=== PATIENT | female | born 1955 | race Caucasian/White ===

== ENCOUNTER 2017-11-25 07:49 | Outpatient (RCR) | payer BC ==
[2017-03-05 11:55] VITALS: Ht 167.6 cm; Wt 95.6 kg
[2017-10-12 08:43] VITALS: BP 114/69
[2017-10-12 08:50] LABS: PLATELET COUNT, AUTOMATED 287 K/uL (150-450)
[~2017-11-25] VITALS: Ht 167.6 cm; Wt 95.6 kg
[~2017-11-25 07:49] MED LIST: ALBI30PE PO; ALLERGY INJECTIONS SC; ASPI-1441 PO; ASPI-1471 PO; ASPI-715 PO; ATOR40TA24 PO; ATOR40TA69 PO; CA C1TAB6 PO; CALC-762 PO; CALCIUM; CANA1TAB2 PO; CEFU250T11 PO; CEFU500T50 PO; CEP500 PO; CETI10CA8 PO; CHOL40003 PO; CHOL400C10 PO; CIPR-214 PO; DAP500I IV; DOXY-179 PO; EFFEXOR PO; ERG400 FT; EXE25PT PO; EZET1TAB55 PO; FOL1 PO; GLY5 PO; IBUP-1618 PO; IBUP600T22 PO; INSU100C14 SQ; INSU100V28 SQ; LETR2.5T4 PO; LEV500 PO; LEVI SQ; LEVI SUBQ; LIRA0.6P3 SQ; LOR5 PO; MET500 PO; METF-420 PO; MON10 PO; MONT10TA PO; MONT10TA22 PO; MULT-898 PO; MULT1TAB64 PO; NAPR-1043 PO; NOVOLOG SUBQ; OMEG-11 PO; ONDA4TAB PO; OXYC-865 PO; PROM-110 PO; RIS35 PO; SITA100T9 PO; SITA25TA5 PO; TRILI135PT PO; VAL80 PO; VENL150C3 PO; VENL150C61 PO; VENL37.53 PO; VITAMIN D
[2017-11-25 08:02] VITALS: BP 142/81
[2017-11-25] MEDS ORDERED: EMPA1TAB7 (08:05)
--- NOTE | 2017-11-25 09:16 | EL-TARABILY ONCOLOGY NOTE ---
EVENT DATE: November 25, 2017 DIAGNOSES 1. 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 2. Diabetes mellitus on insulin and metformin. 3. Seasonal and environmental allergies. 4. Hyperlipidemia. CHIEF COMPLAINT The patient is here today for followup of her breast cancer. ONCOLOGY HISTORY The patient is a 60-year-old female, postmenopausal, who was diagnosed with stage 2B (T2, N1, M0, ER/WY positive, HER-2/shelly negative) well differentiated invasive ductal carcinoma of the left breast diagnosed in January 2008 after a left modified radical mastectomy and right simple prophylactic mastectomy with bilateral tissue expanders and acellular dermal graft placement. In January of 2009 , the patient had a left breast tissue meal packer placement which was removed March 2009 because of infected left tissue meal packer. August 2008, patient had left breast wound dehiscence with extrusion of the left breast implant. She received adjuvant chemotherapy with dose dense AC for 4 cycles between March 2008 through April 2008 followed by 4 courses of dose dense docetaxel between May 2008 through June 2008. She started Exemestane (Aromasin) in July 2008 which was switched to Letrozole because of intolerance with severe hot flashes and the patient was maintained on Letrozole since then. HISTORY OF PRESENT ILLNESS The patient is here today for followup of her left breast cancer. She is doing fine currently. She is complaining of some tingling and numbness in the right hand from carpal tunnel, but other than that she is totally asymptomatic. PAST MEDICAL HISTORY 1. Left breast cancer. 2. History of C. diff colitis, September of 2008. 3. Type 2 diabetes on insulin. 4. Hyperlipidemia. 5. Seasonal and environmental allergies. 6. Intermittent asthma. PAST SURGICAL HISTORY 1. Left modified radical mastectomy and right simple prophylactic mastectomy with bilateral tissue expanders and a xeroderma graft placement in February 2008. 2. August 2008, patient had left breast wound dehiscence with extrusion of the left breast implant. 3. January 2009 patient had left tissue meal packer placement. 4. March 2009, removal of infected left breast tissue meal packer. 5. Tonsillectomy. 6. Two D and C for miscarriages. 7. LASIK surgery of the eyes. SOCIAL HISTORY The patient is with 2 daughters. 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 Denies any abuse of tobacco, alcohol, or drugs. She drinks a glass of wine every now and then. FAMILY HISTORY Maternal grandfather had leukemia. The paternal grandfather had lung cancer. CURRENT MEDICATIONS 1. Levemir 50 units b.i.d. 2. NovoLog 10 units with lunch, 22 units b.i.d. 3. Tanzeum 30 mg once per week. 4. Metformin 1000 mg b.i.d. 5. Effexor XR 187 mg daily. 6. Letrozole 2.5 mg daily. 7. Diovan 80 mg daily. 8. Singulair 10 mg daily[address] 9. Tril[address] 135 mg once daily. 10. Zyrtec 10 mg p.m. 11. Lipitor 40 mg daily. 12. Baby aspirin 81 mg daily. 13. Multivitamin. 14. Calcium and vitamin D. 15. Vitamin D. ALLERGIES 1. PENICILLIN which caused hives. 2. SULFA which caused hives. 3. CLINDAMYCIN which caused hives. REVIEW OF SYSTEMS CONSTITUTIONAL: No appetite or weight change. No fever, chills or sweating. No recent infection. HEENT: Ears: No tinnitus or hearing problem. Nose: No nasal discharge or epistaxis. Throat: No sore throat or mouth ulcers. Eyes: No diplopia or visual changes. RESPIRATORY: No shortness of breath. No cough, expectoration or hemoptysis. CARDIOVASCULAR: No chest pain, orthopnea, or paroxysmal nocturnal dyspnea (PND) . No edema. No palpitations. GASTROINTESTINAL: No nausea or vomiting. No diarrhea or constipation. No change in bowel movements. No heartburn or swallowing difficulties. No abdominal pain. No jaundice. No hematemesis, melena or rectal bleeding. GENITOURINARY: No hematuria or dysuria. MUSCULOSKELETAL: No pain in the muscles, joints or bones. NEUROLOGICAL: Patient has some tingling and numbness in the right hand because of carpal tunnel syndrome. HEMATOLOGIC/LYMPHATIC: No bleeding or easy bruising. No weakness or fatigued. No enlarged lymph nodes. SKIN: No skin rash or lumps. PSYCHIATRIC: No anxiety or depression. PHYSICAL EXAMINATION GENERAL: Looks stable. Well-developed, well-nourished, and in no acute distress. VITAL SIGNS: Blood pressure 142/81, pulse 107 per minute, respirations 16 per minute, temperature 99.2, pulse oximetry 89% on room air. HEENT: Head: Atraumatic. No sinus tenderness to palpation. Eyes: No icterus or conjunctivitis. Mouth and throat: No oral thrush or mucositis. NECK: Supple. No cervical or supraclavicular lymphadenopathy. LUNGS: Clear to auscultation and percussion bilaterally. HEART: Regular rate and rhythm. No gallops, murmurs, clicks or rubs. ABDOMEN: Soft and lax. No tenderness. No hepatosplenomegaly. No masses. EXTREMITIES: No cyanosis, clubbing or edema. LYMPHATICS: No peripheral lymphadenopathy. NEUROLOGICAL: Conscious, alert and oriented times three. No focal motor or sensory deficits. PSYCHIATRIC: Mood and affect appear normal. SKIN: No skin rash, bruise or purpuric eruption. DIAGNOSTIC/LABORATORY STUDIES CBC shows white count 9700, hemoglobin 16.1, hematocrit 48, platelets 287,000. Chem panel totally normally except BUN 24. Blood sugar 278, alkaline phosphatase 156. Bone density scan done September 2016 showed osteopenia of the lumbar spine and left hip. ASSESSMENT 1. Stage IIB (T2 N1 M0) ER/WY positive, HER2/shelly negative well-differentiated invasive ductal carcinoma of the left breast diagnosed in January 2008, status post left modified radical mastectomy and right simple mastectomy followed by adjuvant chemotherapy with four cycles of AC in dose dense received between March 2008 through April 2008 followed by four cycles of dose-dense docetaxel received between May 2008 through June 2008. Patient currently on adjuvant hormonal therapy with letrozole 2.5 mg since July 2008, and patient refused to stop adjuvant hormonal therapy after five years, but she may plan to stop her hormonal therapy after ten years. Her DEXA scan in September 2016 showed osteopenia of the lumbar spine and left hip. Patient currently is not on any diphosphonate. I am planning to repeat her DEXA scan with her next visit in one year, and if she will show deterioration of her bone marrow density , I am planning to put her on Prolia after that, given that the patient is on aromatase inhibitor. 2. Osteopenia of the lumbar spine and left hip. Consider treatment with Prolia if she continues to have deterioration of her bone mineral density. 3. Diabetes mellitus. Patient is followed by Dr. Bee. 4. Seasonal allergies. 5. Hyperlipidemia. PLAN 1. Continue letrozole 2.5 mg daily for a total of ten years. 2. Patient to return in one year with CBC, chem panel, CA 27-29 and DEXA scan. 3. Patient to contact us for any new concerns or complaints. MTDD
== END 2017-12-21 14:19 | disposition home or self-care (01) ==
LOC: ONC 07:49
PROVIDERS: ATTEND Internal Medicine Hematology
DX: Z85.3 Personal history of malignant neoplasm of breast (principal); M85.89 Other specified disorders of bone density and structure, multiple sites; E11.9 Type 2 diabetes mellitus without complications; E78.5 Hyperlipidemia, unspecified; Z79.4 Long term (current) use of insulin
CPT/HCPCS: 36415; 82040; 82247; 82310; 82374; 82435; 82565; 82947; 84075; 84132; 84155; 84295; 84450; 84460; 84520; 85025; 99212

== ENCOUNTER → 2018-01-11 | Outpatient (CLI) | payer OTHER ==
[2017-03-05 11:55] VITALS: BMI 33.4
[~2018-01-11] MED LIST changes: +EMPA1TAB7
== END ==
LOC: LAB 09:12
PROVIDERS: ATTEND Otolaryngology
DX: J30.9 Allergic rhinitis, unspecified (principal)
CPT/HCPCS: 36415; 86003

== ENCOUNTER → 2018-02-16 | Outpatient (REF) ==
[2017-03-05 11:55] VITALS: BMI 33.4
[~2018-02-16] MED LIST changes: +IPRA15SP7 NS
[2018-02-16 10:04] LABS: LDL CHOLESTEROL 63 mg/dl
== END ==
DX: Z02.9 Encounter for administrative examinations, unspecified (principal)

== ENCOUNTER → 2018-04-24 | Outpatient (CLI) | payer OTHER ==
[2017-03-05 11:55] VITALS: BMI 33.4
== END ==
LOC: US 01:59
PROVIDERS: ATTEND Nurse Practitioner Primary Care
DX: I51.7 Cardiomegaly (principal)
CPT/HCPCS: 93306

== ENCOUNTER → 2018-05-15 | Outpatient (CLI) | payer OTHER ==
[2017-03-05 11:55] VITALS: BMI 33.4
== END ==
LOC: LAB 07:37
PROVIDERS: ATTEND Nurse Practitioner Primary Care
DX: E11.9 Type 2 diabetes mellitus without complications (principal); E78.00 Pure hypercholesterolemia, unspecified; I10 Essential (primary) hypertension
CPT/HCPCS: 36415; 82040; 82247; 82310; 82374; 82435; 82465; 82565; 82947; 83036; 83718; 84075; 84132; 84155; 84295; 84450; 84460; 84478; 84520

== ENCOUNTER → 2018-09-04 | Outpatient (CLI) | payer OTHER ==
[2017-03-05 11:55] VITALS: BMI 33.4
[~2018-09-04] MED LIST changes: -ALBI30PE PO; +ALBI30PE3 PO; +ATR80PT PO; +LOSA50TA80 PO; +VARI50KI IM; +VENL225T5 PO
[2018-09-04 07:49] LABS: PLATELET COUNT, AUTOMATED 326 K/uL (150-450)
--- NOTE | 2018-09-04 09:01 | EKG ---
FACILITY: [facility] [place]IENT NAME: LUKAS BELCHER : [id number] MR: [id number] V: [id number] EXAM DATE: ORDERING PHYSICIAN: JOAQUINA CANALES TECHNOLOGIST: RICKEY Test Reason : PREOP-SINUS Blood Pressure : / mmHG Vent. Rate : 079 BPM Atrial Rate : 079 BPM P-R Int : 162 ms QRS Dur : 086 ms QT Int : 384 ms P-R-T Axes : 059 -04 056 degrees QTc Int : 440 ms Normal sinus rhythm with sinus arrhythmia Normal ECG No previous ECGs available Confirmed by SURJIT BARRON ([id number]) on 09/04/2018 4:48:55 PM Referred By: ALLY Confirmed By:SURJIT BARRON
== END ==
LOC: LAB 07:36
PROVIDERS: ATTEND Otolaryngology
DX: Z01.818 Encounter for other preprocedural examination (principal); I10 Essential (primary) hypertension; E11.9 Type 2 diabetes mellitus without complications
CPT/HCPCS: 36415; 82040; 82247; 82310; 82374; 82435; 82565; 82947; 83036; 84075; 84132; 84155; 84295; 84450; 84460; 84520; 85025; 93005

== ENCOUNTER 2018-10-23 02:28 | Day surgery (SDC) | payer OTHER ==
[2017-03-05 11:55] VITALS: Ht 167.6 cm; Wt 94.3 kg
[~2018-10-23] VITALS: Ht 167.6 cm; Wt 94.3 kg
[~2018-10-23 02:28] MED LIST changes: +FAMOTIDINE 20 MG TAB PO ONE; +LIDOCAINE/SOD BICARB 8.4% SYR ID ONE; +MIDAZOLAM 2 MG/2 ML VIAL IVP PRN; +NORMOSOL R SOLN(*) 1000 ML BAG 1,000 ML IV PRN; +VANCOMYCIN(*) 1 GM VIAL 1 GM, VANCOMYCIN (*) 0.5 GM VIAL 0.5 GM in NS(*) 0.9% 250 ML BA... IVPB ONE
[2018-10-23 07:10] VITALS: BP 137/69
[2018-10-23] MEDS ORDERED: LIDOCAINE/SOD BICARB 8.4% SYR ID ONE (07:20)
[2018-10-23] MEDS ORDERED: MIDAZOLAM 2 MG/2 ML VIAL IVP PRN (07:20)
[2018-10-23] MEDS ORDERED: NORMOSOL R SOLN(*) 1000 ML BAG 1,000 ML IV PRN (07:20)
[2018-10-23] MEDS ORDERED: VANCOMYCIN(*) 1 GM VIAL 1 GM, VANCOMYCIN (*) 0.5 GM VIAL 0.5 GM in NS(*) 0.9% 250 ML BA... IVPB ONE (07:20)
[2018-10-23] MEDS ORDERED: FAMOTIDINE 20 MG TAB PO ONE (07:20)
[2018-10-23] MEDS ORDERED: LIDO/EPI 1% MDV 1:100,000 20ML INFIL ONE (07:55)
[2018-10-23] MEDS ORDERED: BACITRACIN OINT 15 GM TUBE TP ONE (07:55)
[2018-10-23] MEDS ORDERED: NS(*) 0.9% 250 ML BAG 250 ML ONE (07:55)
[2018-10-23] MEDS ORDERED: OXYMETAZOLINE SPRAY 15 ML BTL ONE (07:55)
[2018-10-23] MEDS ORDERED: PROPOFOL EMUL(*) 10MG/ML 20 ML 40 ML ONE (08:03)
[2018-10-23] MEDS ORDERED: ONDANSETRON 4 MG/2 ML VIAL ONE (08:03)
[2018-10-23] MEDS ORDERED: DEXAMETHASONE SOD PHOS 10MG/ML ONE (08:03)
[2018-10-23] MEDS ORDERED: AZIT-17 PO (09:29)
[2018-10-23] MEDS ORDERED: HYDR-653 PO (09:31)
[2018-10-23] MEDS ORDERED: APAP/HYDROCODONE 325/5 TAB ONE (10:07)
--- NOTE | 2018-10-23 10:15 | OPERATIVE REPORT 1 ---
EVENT DATE: October 23, 2018 SURGEON: Hardeep Wiley MD ANESTHESIOLOGIST: Garrison Condon MD ANESTHESIA: LMA. PROCEDURES PERFORMED 1. Septoplasty. 2. Submucous resection of bilateral inferior turbinates. PREOPERATIVE DIAGNOSES 1. Nasal septal deviation. 2. Bilateral inferior turbinate hypertrophy. POSTOPERATIVE DIAGNOSES 1. Nasal septal deviation. 2. Bilateral inferior turbinate hypertrophy. INDICATIONS Please refer to preoperative note. DESCRIPTION OF PROCEDURE The patient was positively identified in the preoperative area. She was there alone. Risks were again explained, including but not limited to bleeding, infection, nasoseptal perforation and those associated with anesthesia. She acknowledged understanding those risks. She was then brought back to the operative suite, laid supine on the operative table and anesthesia was administered. Once asleep, the patient was positioned and then prepped and draped in usual sterile fashion. I initially decongested the nose by injecting approximately 10 cc's of lidocaine with epinephrine to the bilateral anterior nasoseptal mucosa along the face of the bilateral anterior turbinates. Both nasal cavities were subsequently packed with cottonoids containing Afrin solution. These were subsequently removed and nasal endoscopy was performed. This was notable for severe right nasoseptal deviation. A [place] incision was made in the left anterior nasoseptal cartilage. A subperichondrial flap was elevated. An incision was then made into the anterior nasoseptal cartilage approximately 5 mm posterior to the original Rylan incision. A contralateral flap was raised. The deviated portion of patient's septonasal cartilage and bone was then removed. The Rylan incision was then reapproximated with interrupted Chromic stitch. I then addressed the inferior turbinates. A stab incision was made at the face of the left inferior turbinate. A caudal elevator was utilized to elevate the mucosa off the underlying bone and submucous resection was then performed with the turbinate blade of the microdebrider. The stab incision was then cauterized and suctioned with Bovie electrocautery. The contralateral inferior turbinate was addressed in a similar fashion. Bilateral nasoseptal splints were then placed and secured to the columella-septal suture. The patient was then turned to Anesthesia for emergence. ESTIMATED BLOOD LOSS 25 mL. COMPLICATIONS No complications. MTDD
[2018-10-23 10:20] VITALS: BP 139/56
[2018-10-23 10:30] VITALS: BP 130/71
[2018-10-23 11:00] VITALS: BP 120/68
[2018-10-23 11:02] VITALS: BP 107/68
--- NOTE | 2018-10-23 11:27 | NUR ---
1020- PT. RECEIVED FROM PACU VIA STRETCHER WITH THE SIDERAILS UP. SBAR REPORT RECEIVED FROM JUNO RUSSO. PT. ORIENTED AND AROUSABLE TO ALL STIMULI JUST SLEEPY. 1030- P.T RESTING QUIETLY. 1058- PT. RETURNED TO ROOM AIR AND STATES THAT SHE NEEDS TO USE THE RESTROOM. 1100- ORTHOSTATICS PREFORMED. 1105- PT. TO THE RESTROOM AND IV SALINE LOCKED. 1113- PT. DROPPED TO 82% SO PLACED BACK ON OXYGEN AT 1LPM OXY MASK. 1115- DR. BAKER CALLED AND HE ORDERED AN AEROBIKA. 1119- CALLED CARDIOPULMONARY AND ORDERED AEROBIKA. 1126- CARDIOPULMONARY HERE TO GIVE AEROBIKA TREATMENT. 1130- SBAR TO JOHNSON RUSSO.
--- NOTE | 2018-10-23 11:30 | NUR ---
1130- SBAR REPORT FROM Andre PALMER RN 1137- IN TO SEE PT, PT IN SF POSITION, USING AEROBIKA, A/O X 3, MAINTAINING SATS AT THIS TIME, LUNG SOUNDS CTA, SEE ASSESSMENT FOR DETAILS 1140- PT TOLERATING COFFEE, REPORTS SORE THROAT 1146- NOTED SATS DROPPED ON RA TO 85%, PT COUGHING, DEEP BREATHING AND USING AEROBIKA, SATS UP TO 93% 1147- CHANGED NASAL DRESSING, MINIMAL DRAINAGE NOTED, FRESH DRESSING IN PLACE 1200- CONSULT DR. BAKER REGARDING HOME O2, DR. BAKER INTO SEE PT, HOME O2 ORDERED FOR 2LPM VIA OXY MASK D/T NASAL PACKING AND SPLINTS 1207- PT PLACED ON 2LPM VIA OXYMASK, MAINTAINING SATS AT 94% 1210- CALLED [facility], FAXED PAPERWORK
--- NOTE | 2018-10-23 12:24 | NUR ---
1224- PT MAINTAINING SATS ON 2LPM VIA OXYMASK, SATS 94% SEE VS CHART 1225- REVIEWED D/C INSTRUCTIONS WITH PT AND 1235- LINCARE AT BEDSIDE 1237- PT GETTING DRESSED 1244- D/C IV WITH CATH INTACT, PRESSURE DRESSING APPLIED WITH GAUZE AND COBAND 1250- PT AMBULATORY TO VEHICLE WITH PORTABLE O2, OXY MASK IN PLACE, STABLE GAIT NOTED, ACCOMPANIED BY JOHNSON RUSSO AND
== END 2018-10-23 10:20 | disposition home or self-care (01) ==
LOC: OR 02:28
PROVIDERS: ATTEND Otolaryngology
DX: J34.2 Deviated nasal septum (principal); J34.3 Hypertrophy of nasal turbinates; I10 Essential (primary) hypertension
CPT/HCPCS: 30140; 30520; 36416; 82948; 94667; J1100; J2250; J2405; J2704; J3370; J7050

== ENCOUNTER → 2018-12-04 | Outpatient (CLI) | payer OTHER ==
[2017-03-05 11:55] VITALS: BMI 33.4
[~2018-12-04] MED LIST changes: +AZIT-17 PO; -FAMOTIDINE 20 MG TAB PO ONE; +HYDR-653 PO; -LIDOCAINE/SOD BICARB 8.4% SYR ID ONE; -MIDAZOLAM 2 MG/2 ML VIAL IVP PRN; -NORMOSOL R SOLN(*) 1000 ML BAG 1,000 ML IV PRN; -VANCOMYCIN(*) 1 GM VIAL 1 GM, VANCOMYCIN (*) 0.5 GM VIAL 0.5 GM in NS(*) 0.9% 250 ML BA... IVPB ONE
--- NOTE | 2018-12-04 14:53 | RADIOLOGY IMAGING REPORT ---
FACILITY: [facility] PATIENT NAME: Rosa Bowman : 1955 MR: [id number] V: [id number] EXAM DATE: ORDERING PHYSICIAN: CAMERON CLEVELAND TECHNOLOGIST: Location: [facility] - [place] Patient: Rosa Bowman : 1955 Visit/Account:[id number] Date of Sevice: 12/04/2018 DEXA Scan 12/04/2018 2:00 PM HISTORY: Osteopenia Comparison: DEXA scan from 10/22/2016. LUMBAR SPINE: The bone mineral density (BMD) measured from L1-L4 correlates with a Z-score of -1.3 and a T-score of -1.6 which is moderately osteopenic as defined by the World Health Organization. The corresponding risk of fracture in the lumbar spine is increased 3-4 times compared with a young adult reference pop ulation. This value has decreased by 1.8 % since the prior study. More than 5% change is considered significant. HIP: Bone mineral density (BMD) measured in the Left total hip region correlates with a Z-score -0.8 and a T-score of -1.1 which is mildly osteopenic as defined by the World Health Organization. The corresp onding risk of fracture in the hip is increased 2-3 times compared with a young adult reference popul ation. This value has increased by 0.2 % since the prior study. More than 5% change is considered si gnificant. Bone mineral density (BMD) measured in the Femoral Neck region measures 0.759 g/cm2. T-score is -2. 0. IMPRESSION: 1. Lumbar spine: Moderate osteopenia. There has been No significant change in the bone mineral dens ity since the previous exam. 2. Left Total Hip: Mild osteopenia. There has been No significant change in the bone mineral densit y since the previous exam. 3. Femoral Neck: Bone Mineral Density is 0.759 g/cm2. Severe osteopenia. The next DEXA scan of this patient should include the following sites: L1-L4 and the left hip. FRAX? WHO Fracture Risk Assessment Tool link: <http://www.shef.ac.uk/FRAX/tool.jsp?[email or web address]> PLEASE NOTE: 1) The World Health Organization defines low BMD as follows: T-score Normal > -1 Osteopenia < -1 and > -2.5 Osteoporosis < -2.5 without fractures Established osteoporosis < -2.5 with fractures 2) In general, you may wish to consider: Diagnosis Treatment Follow-up DEXA Normal BMD Prevention 2-3 years Osteopenia Prevention/therapy 1-2 years Osteoporosis Therapy Yearly 3) Fracture risk estimated from the T-score is more accurate for vertebral fractures (often spontane ous) than for hip fractures. Report Dictated By: Yeison Modi MD at 12/04/2018 2:45 PM Report E-Signed By: Yeison Modi MD at 12/04/2018 2:48 PM JAVIERN:MIRACLE
== END ==
LOC: RAD 13:51
PROVIDERS: ATTEND Internal Medicine Hematology
DX: M85.89 Other specified disorders of bone density and structure, multiple sites (principal)
CPT/HCPCS: 77080

== ENCOUNTER 2018-12-08 08:23 | Outpatient (RCR) | payer BC, OTHER ==
[2017-03-05 11:55] VITALS: Wt 97.1 kg
[2018-12-08 08:53] VITALS: BP 134/81
[2018-12-08 09:30] LABS: PLATELET COUNT, AUTOMATED 292 K/uL (150-450)
--- NOTE | 2018-12-08 19:59 | EL-TARABILY ONCOLOGY NOTE ---
EVENT DATE: December 08, 2018 DIAGNOSES 1. Stage IIB (T2 N1 M0, ER/IA positive, HER-2/shelly negative) well-differentiated invasive ductal carcinoma of the left breast. 2. Diabetes mellitus, on insulin and metformin. 3. Seasonal and environmental allergies. 4. Hyperlipidemia. CHIEF COMPLAINT The patient is here today for followup of her breast cancer. ONCOLOGY HISTORY The patient is a 62-year-old female, postmenopausal, who was diagnosed with stage IIB (T2 N1 M0, ER/IA positive, HER-2/shelly negative) well-differentiated invasive ductal carcinoma of the left breast diagnosed in January 2008 after a left modified radical mastectomy and right simple prophylactic mastectomy with bilateral tissue expanders and acellular dermal graft placement. In January of 2009, the patient had a left breast tissue tractor trailer driver placement which was removed March 2009 because of infected left tissue tractor trailer driver. August 2008, patient had left breast wound dehiscence with extrusion of the left breast implant. She received adjuvant chemotherapy with dose-dense AC for four cycles between March 2008 through April 2008, followed by four courses of dose-dense docetaxel between May 2008 through June 2008. She started exemestane (Aromasin) in July 2008, which was switched to letrozole because of intolerance with severe hot flashes, and the patient was maintained on Letrozole since then. HISTORY OF PRESENT ILLNESS Patient is here today for followup of her left breast cancer. She is doing fine currently and denies any complaints. She has some adjustment of her diabetic therapy lately because of high hemoglobin A1c. PAST MEDICAL HISTORY 1. Left breast cancer. 2. History of C diff colitis, September 2008. 3. Type 2 diabetes, on insulin. 4. Hyperlipidemia. 5. Seasonal and environmental allergies. 6. Intermittent asthma. PAST SURGICAL HISTORY 1. Left modified radical mastectomy and right simple prophylactic mastectomy with bilateral tissue expanders and a xeroderma graft placement in February 2008. 2. August 2008, patient had left breast wound dehiscence with extrusion of the left breast implant. 3. January 2009, patient had left tissue tractor trailer driver placement. 4. March 2009, removal of infected left breast tissue tractor trailer driver. 5. Tonsillectomy. 6. Two D and C's for miscarriages. 7. LASIK surgery of the eyes. SOCIAL HISTORY The patient is with two daughters. 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 Denies any abuse of tobacco, alcohol, or drugs. She drinks a glass of wine every now and then. FAMILY HISTORY Maternal grandfather had leukemia. Paternal grandfather had lung cancer. CURRENT MEDICATIONS 1. Levemir 50 units b.i.d. 2. NovoLog 10 units with lunch, 22 units b.i.d. 3. Tanzeum 30 mg once per week. 4. Metformin 1000 mg b.i.d. 5. Effexor XR 187 mg daily. 6. Letrozole 2.5 mg daily. 7. Diovan 80 mg daily. 8. Singulair 10 mg daily[address] 9. Tr[address] 135 mg once daily. 10. Zyrtec 10 mg p.m. 11. Lipitor 40 mg daily. 12. Baby aspirin 81 mg daily. 13. Multivitamin. 14. Calcium and vitamin D. 15. Vitamin D. ALLERGIES 1. PENICILLIN which caused hives. 2. SULFA which caused hives. 3. CLINDAMYCIN which caused hives. REVIEW OF SYSTEMS CONSTITUTIONAL: No appetite or weight change. No fever, chills, or sweating. No recent infection. HEENT: Ears: No tinnitus or hearing problem. Nose: No nasal discharge or epistaxis. Throat: No sore throat or mouth ulcers. Eyes: No diplopia or visual changes. RESPIRATORY: No shortness of breath. No cough, expectoration, or hemoptysis. CARDIOVASCULAR: No chest pain, orthopnea, or paroxysmal nocturnal dyspnea (PND). No edema. No palpitations. GASTROINTESTINAL: No nausea or vomiting. No diarrhea or constipation. No change in bowel movements. No heartburn or swallowing difficulties. No abdominal pain. No jaundice. No hematemesis, melena, or rectal bleeding. GENITOURINARY: No hematuria or dysuria. MUSCULOSKELETAL: No pain in the muscles, joints, or bones. NEUROLOGICAL: No tingling or numbness in the hands or feet. No headaches or convulsions. HEMATOLOGIC/LYMPHATIC: No bleeding or easy bruising. No weakness or fatigue. No enlarged lymph nodes. SKIN: No skin rash or lumps. PSYCHIATRIC: No anxiety or depression. PHYSICAL EXAMINATION GENERAL: Looks stable. Well developed, well nourished, and in no acute distress. VITAL SIGNS: Blood pressure 132/71, pulse 87 per minute, respirations 16 per minute, temperature 96.8, pulse ox 91% on room air. HEENT: Head: Atraumatic. No sinus tenderness to palpation. Eyes: No icterus or conjunctivitis. Mouth and throat: No oral thrush or mucositis. NECK: Supple. No cervical or supraclavicular lymphadenopathy. LUNGS: Clear to auscultation and percussion bilaterally. HEART: Regular rate and rhythm. No gallops, murmurs, clicks, or rubs. ABDOMEN: Soft and lax. No tenderness. No hepatosplenomegaly. No masses. EXTREMITIES: No cyanosis, clubbing, or edema. LYMPHATICS: No peripheral lymphadenopathy. NEUROLOGICAL: Conscious, alert, and oriented times three. No focal motor or sensory deficits. PSYCHIATRIC: Mood and affect appear normal. SKIN: No skin rash, bruise, or purpuric eruption. DIAGNOSTIC DATA Pending, but DEXA scan done on the November showed moderate osteopenia with T score -1.6 in the lumbar spine. She had mild osteopenia of the left hip with T-score -1.1 and severe osteopenia over the femoral neck with T score -2. ASSESSMENT 1. Stage IIB (T2 N1 M0) ER/IA-positive, HER2/shelly-negative, well-differentiated invasive ductal carcinoma of the left breast diagnosed in January 2008, status post left modified radical mastectomy and right simple mastectomy, followed by adjuvant chemotherapy with four cycles of Adriamycin and cyclophosphamide (AC) in dose dense received between March 2008 through April 2008, followed by four cycles of dose-dense docetaxel received between May 2008 through June 2008. She is currently on adjuvant hormonal therapy with letrozole 2.5 mg since July 2008, and patient refused to stop the adjuvant hormonal therapy. I am planning to continue her letrozole 2.5 mg daily. Her repeat DEXA scan on the November did reveal stable osteopenia. It was severe in the femoral neck with T score -2, mild in the left hip with T score -1.1, and moderate osteopenia in the lumbar spine with T score -1.6. I am planning to put her on treatment with Prolia 60 mg every six months. I will see her in a year from now with CBC, chemistry panel, and CA27.29. 2. Osteopenia of the lumbar spine, left hip, and femoral neck. I am planning to add Prolia 60 mg intramuscularly q.6 months because she is taking aromatase inhibitors. 3. Diabetes mellitus. She is followed by Dr. Bee. 4. Seasonal allergies. 5. Hyperlipidemia. PLAN 1. Continue letrozole 2.5 mg daily. 2. Prolia 60 mg intramuscularly every six months. 3. Patient to return in one year with CBC, chem panel, CA27.29, and DEXA scan. 4. Patient to contact us for any new concerns or complaints. MTDD
== END 2019-01-17 08:59 | disposition home or self-care (01) ==
LOC: ONC 08:23
PROVIDERS: ATTEND Internal Medicine Hematology
DX: C50.912 Malignant neoplasm of unspecified site of left female breast (principal); Z17.0 Estrogen receptor positive status [ER+]; Z79.811 Long term (current) use of aromatase inhibitors; Z92.21 Personal history of antineoplastic chemotherapy; E11.9 Type 2 diabetes mellitus without complications; Z79.4 Long term (current) use of insulin; E78.5 Hyperlipidemia, unspecified; M85.89 Other specified disorders of bone density and structure, multiple sites
CPT/HCPCS: 36415; 82040; 82247; 82310; 82374; 82435; 82565; 82947; 84075; 84132; 84155; 84295; 84450; 84460; 84520; 85025; 86300; 99212

== ENCOUNTER 2019-02-20 09:39 | Outpatient (RCR) | payer OTHER ==
[2017-03-05 11:55] VITALS: BMI 33.4
[2019-02-20] MEDS ORDERED: DENOSUMAB 60 MG/1 ML SYR SUBQ ONE ×2 (13:55→14:00)
[2019-02-20 14:00] VITALS: BP 136/61
== END 2019-03-26 11:34 | disposition home or self-care (01) ==
LOC: ONC 09:39
PROVIDERS: ATTEND Internal Medicine Hematology
DX: C50.912 Malignant neoplasm of unspecified site of left female breast (principal)
CPT/HCPCS: 96372; J0897